=== PATIENT | female | born 1940 | race Caucasian/White ===

== ENCOUNTER → 2022-03-04 | Day surgery (SDC) | payer MEDICARE, OTHER ==
[2022-02-25 14:27] LABS: BASOPHILS % 0.8 % (0.0-1.0); EOSINOPHILS # (AUTO) 0.1 (0.0-0.4); EOSINOPHILS % 2.1 % (0.0-6.0); HEMATOCRIT 42.6 % (34.2-44.1); HEMOGLOBIN 13.6 g/dL (12.0-16.0); LYMPHOCYTES # (AUTO) 1.9 (1.0-3.2); LYMPHOCYTES % 35.7 % (18.0-39.1); MEAN CORPUSCULAR HEMOGLOBIN 28.7 pg (28-32); MEAN CORPUSCULAR HGB CONC 31.9 g/dL (31-35); MEAN CORPUSCULAR VOLUME 89.9 fL (81-99); MONOCYTES # (AUTO) 0.4 (0.2-0.8); MONOCYTES % 8.4 % (4.4-11.3); NEUTROPHILS # (AUTO) 2.8 (2.1-6.9); NEUTROPHILS % 52.8 % (38.7-80.0); PLATELET COUNT 242 x10e3/uL (140-360); RED BLOOD COUNT 4.74 x10e6/uL (3.6-5.1); RED CELL DISTRIBUTION WIDTH 14.4 % (11.7-14.4)
[~2022-03-04] MED LIST: ATORVASTATIN CA20 MG PO; B12 ACTIVE1000 MCG SL; BENICAR20 MG PO; CALCIUM PO; ELIQUIS5 MG PO; FEROSUL325 MG PO; ICOSAPENT ETHYL1 GM PO; LEVOTHYROXINE50 MCG PO; LIDOCAINE HCL 2% LOCAL INJ 5 ML SDV VIAL INJ ONE; METOPROLOL SUCC50 MG PO; MILK THISTLE175 M2 PO; MULTI-VITAMIN1 EACH PO; PROPOFOL IV EMULSION 10 MG/ML 20 ML VIAL ONE; TRIJARDY XR 5-1 EACH PO
[2022-03-04 09:35] VITALS: BP 114/69
== END | disposition home or self-care (01) ==
LOC: OR 07:46
PROVIDERS: ATTEND Internal Medicine Gastroenterology
DX: R19.5 Other fecal abnormalities (principal); Z86.010 Personal history of colon polyps; K55.20 Angiodysplasia of colon without hemorrhage; K58.9 Irritable bowel syndrome, unspecified; K64.8 Other hemorrhoids; K57.90 Diverticulosis of intestine, part unspecified, without perforation or abscess without bleeding; K21.9 Gastro-esophageal reflux disease without esophagitis; E11.9 Type 2 diabetes mellitus without complications; I48.91 Unspecified atrial fibrillation; E78.00 Pure hypercholesterolemia, unspecified; E03.9 Hypothyroidism, unspecified; M54.9 Dorsalgia, unspecified; M54.2 Cervicalgia; J44.9 Chronic obstructive pulmonary disease, unspecified; I10 Essential (primary) hypertension; Z88.8 Allergy status to other drugs, medicaments and biological substances; Z01.810 Encounter for preprocedural cardiovascular examination; Z01.812 Encounter for preprocedural laboratory examination; Z79.02 Long term (current) use of antithrombotics/antiplatelets; Z79.899 Other long term (current) drug therapy; Z68.25 Body mass index [BMI] 25.0-25.9, adult; Z87.891 Personal history of nicotine dependence; Z83.71 Family history of colonic polyps
CPT/HCPCS: 36415 ×2; 45378; 82948; 85025; 93005; J2001; J2704